=== PATIENT | female | born 1955 | race Caucasian/White ===

== ENCOUNTER 2020-01-16 18:45 | Observation (INO) | payer MEDICARE, OTHER, SELFPAY ==
--- NOTE | 2020-01-16 18:48 | ED_ITS ---
Entered by Sheri Rivera, acting as scribe for Karen Johnson HPI - General Adult General: Chief complaint: General Medical Stated complaint: possible stroke Thursday Time Seen by Provider: 01/16/20 18:52 History of Present Illness: HPI narrative: 64 yo female presents with possible stroke 3days ago. Patient states that she thought her blood sugar was low in the 80s but ate breakfast. She felt tired and then laid down. Upon awakening several hours later she had tremendous difficulty with speech. Her family reports that she had slurred speech. She is had difficulty with speech since that time. She states every day she is a little better but still ultimately has a hard time speaking. She denies any other complaints or concerns. MD complaint: possible stroke Onset (ago): day(s) (3) Associated symptoms: Deny chest pain, confusion, diaphoresis, dyspnea, headache(s), malaise, nausea, rash, palpitations, syncope or vomiting Review of Systems General: Reports: other (negative unless marked) Const: Denies: fever, chills, body aches, fatigue, malaise or diaphoresis Eyes: Denies: change in vision or blurry vision ENMT: Denies: throat pain, painful swallowing, hoarseness, ear pain, ear discharge, Change in hearing or nasal discharge Card: Denies: chest pain, palpitations, irregular heart rhythm, syncope, pre- syncope, shortness of breath on exertion or shortness of breath when lying down Resp: Denies: shortness of breath, productive cough, non-productive cough, wheezing, coughing up blood or chest congestion GI: Denies: abdominal pain, nausea, vomiting, vomiting blood, coffee grounds in vomit, diarrhea, constipation, cramping, blood in stool or black tarry stool : Denies: flank pain, painful urination, urinary frequency, urinary urgency, decreased urine ouput, urinary incontinence or blood in urine Musc: Denies: neck pain, back pain, extremity pain, extremity swelling, joint pain, joint swelling, joint warmth or joint stiffness Skin/Breast: Denies: rash, skin tenderness or yellow skin Neuro: Denies: headache, numbness in extremities, weakness in extremities, changes in sensation, lack of coordination, difficulty walking, dizziness, vertigo or confusion Endo: Denies: excessive thirst, tired all the time, cold intolerance, excessive sweating, flushing or hot flashes Alcon/Lymph: Denies: easy bruising, easy bleeding, petechiae or enlarged lymph nodes All/Imm: Denies: hives, throat swelling, tongue swelling, facial swelling or acute wheezing PFSH ED PFSH: Family History (Updated 01/16/20 @ 23:07 by Bell Chapman MD) Other Stroke Social History Smoking and tobacco status: never smoked Physical Exam Const: COMMON NORMALS: no apparent distress, oriented x3, no limitations, healthy appearing and well nourished EXAM LIMITATIONS: no altered mental status GENERAL APPEARANCE: cooperative, well kempt and well developed ORIENTATION/CONSCIOUSNESS: Yes awake HENMT: COMMON NORMALS: normocephalic, head/scalp atraumatic, hearing grossly normal bilaterally, external ears normal, EAC's normal, external nose normal and moist oral mucous membranes HEAD & SCALP: normal to inspection, normocephalic and atraumatic FACE & SINUS: normal facial exam and face symmetric NOSE: external nose normal and nares normal EXTERNAL EAR: Yes external ears normal EXTERNAL AUDITORY CANAL: EAC's normal MOUTH: oral and palatal mucosa normal and tongue normal Eye: COMMON NORMALS: PERRL, EOMs intact bilaterally, conjunctivae normal and no scleral icterus GENERAL EYE: normal appearance of both eyes and normal light reflex CONJUNCTIVA: Yes conjunctivae normal SCLERA: sclerae normal CORNEA: Yes corneas normal PUPIL: Yes PERRL DIRECT OPHTHALMOSCOPY: Yes normal light reflex Neck/C-Spine: COMMON NORMALS: full ROM, no lymphadenopathy, supple, no meningeal signs and no JVD GENERAL: Yes normal visual inspection and Yes trachea midline CERVICAL SPINE: Yes cervical ROM normal Chest: COMMONS NORMALS: inspection of chest normal and palpation of chest normal Resp: COMMON NORMALS: normal respiratory effort, no retractions, no use of accessory muscles and clear to auscultation bilaterally EFFORT & INSPECTION: Yes able to speak in complete sentences AUSCULTATION: clear to auscultation bilaterally Cardio: COMMON NORMALS: no JVD, regular rate, regular rhythm, S1 normal heart sound, S2 normal heart sound, no gallops, no clicks, no murmurs and no rub JUGULAR VENOUS DISTENTION: no JVD RATE: regular rate RHYTHM: regular rhythm HEART SOUNDS: S1 normal and S2 normal GI: COMMON NORMALS: soft to palpation, non-tender, no hepatosplenomegaly and no masses INSPECTION: Yes normal to inspection PALPATION: Yes soft and Yes no hepatosplenomegaly : COMMON NORMALS: Yes no CVA tenderness BLADDER/KIDNEY EXAM: Yes no CVA tenderness Back/Pelvis: COMMON NORMALS: no CVA tenderness, thoracic and lumbar spine normal to inspection, no thoracic nor lumbar tenderness and thoraco-lumbar ROM normal Extremity: COMMON NORMALS: normal to inspection, full ROM, normal capillary refill, no joint enlargement, no clubbing, cyanosis or edema and no calf tenderness Neuro: COMMON NORMALS: oriented x3, CN's II-XII intact bilaterally, moves all extremities, no focal motor deficits and no sensory deficits noted MENINGEAL SIGNS: Yes no meningeal signs Psych: COMMON NORMALS: mental status grossly normal, thought process normal, cooperative, affect normal, speech normal and activity/motor behavior normal APPEARANCE: Yes well kempt SPEECH: Yes normal speech THOUGHT PROCESS: normal thought process Skin: COMMON NORMALS: no rashes or lesions noted, skin turgor normal, no jaundice, no petechiae and no mottling GENERAL SKIN EXAM: no rashes or lesions noted and turgor normal Course Vital Signs: Vital signs: Vital Signs Temperature 98.2 F 01/16/20 23:20 Pulse Rate 92 01/16/20 23:50 Respiratory Rate 18 01/16/20 23:20 Blood Pressure 136/87 01/16/20 23:20 Pulse Oximetry 95 01/16/20 23:50 MDM - General Adult MDM Narrative: Medical decision making narrative: Thao is a very nice 64-year-old female who comes in with strokelike symptoms and a CT shows a stroke on her her left parietal lobe. She agrees to stay for further evaluation and risk stratification. The case was endorsed to Dr. Chapman and she is agreeable to admission. Lab Data: Attestation: I reviewed the patient's lab results. Labs: Lab Results 01/16/20 01/16/20 01/16/20 Range/Units 19:10 19:10 19:10 WBC 7.6 (4.0-10.0) 10^3/ uL RBC 4.05 L (4.1-5.3) 10^6/u L Hgb 11.9 (11.5-15.3) g/dL Hct 37.2 (37.0-47.0) % MCV 91.9 (81-99) fL MCH 29.4 (28.0-34.0) pg MCHC 32.0 (30.0-36.0) g/dL RDW 13.2 (12.1-15.1) % Plt Count 334 (130-400) 10^3/c mm MPV 9.6 (7.4-10.4) fL Neut % (Auto) 53.7 % Lymph % (Auto) 40.2 % [place] % (Auto) 5.7 % Eos % (Auto) 0.0 % Baso % (Auto) 0.1 % Neut # (Auto) 4.1 (1.8-7.7) 10^3/u L Lymph # (Auto) 3.1 (0.8-4.8) 10^3/u L [place] # (Auto) 0.4 (0.2-0.9) 10^3/u L Eos # (Auto) 0.0 (0.0-0.8) 10^3/u L Baso # (Auto) 0.0 (0.0-0.1) 10^3/u L Nucleated RBC % (a uto) 0 % Nucleated RBCs # 0.0 /100WBC PT 12.50 (10.5-13.3) SECO NDS INR 0.91 (0.8-1.2) APTT 23.0 L (23.9-36.7) SECO NDS Sodium 136 (136-145) mmol/L Potassium 3.8 (3.5-5.1) mmol/L Chloride 99 (98-107) mmol/L Carbon Dioxide 22 (22-29) mmol/L Anion Gap 18.8 (5-19) BUN 19 (8-23) mg/dL Creatinine 1.3 H (0.5-0.9) mg/dL GFR Calculation 41.1 L (90-130) mL/min Glucose 206 H (65-115) mg/dL Calcium 9.5 (8.5-10.5) mg/dL Magnesium (1.7-2.3) mg/dL Total Bilirubin 0.3 (0.15-1.2) mg/dL AST 34 H (0-32) U/L ALT 28 (0-33) U/L Alkaline Phosphata se 105 (35-105) IU/L Troponin T Baselin e (0-10) ng/mL Troponin T 120 Min [place] (0-10) ng/mL Delta Troponin T (0-10) ABS# Total Protein 7.7 (6.6-8.7) g/dL Albumin 4.2 (3.5-5.2) g/dL Globulin 3.5 (1.3-4.6) g/dL TSH (0.27-4.20) uIU/ mL 01/16/20 01/16/20 01/16/20 Range/Units 19:10 19:10 21:01 WBC (4.0-10.0) 10^3/ uL RBC (4.1-5.3) 10^6/u L Hgb (11.5-15.3) g/dL Hct (37.0-47.0) % MCV (81-99) fL MCH (28.0-34.0) pg MCHC (30.0-36.0) g/dL RDW (12.1-15.1) % Plt Count (130-400) 10^3/c mm MPV (7.4-10.4) fL Neut % (Auto) % Lymph % (Auto) % [place] % (Auto) % Eos % (Auto) % Baso % (Auto) % Neut # (Auto) (1.8-7.7) 10^3/u L Lymph # (Auto) (0.8-4.8) 10^3/u L [place] # (Auto) (0.2-0.9) 10^3/u L Eos # (Auto) (0.0-0.8) 10^3/u L Baso # (Auto) (0.0-0.1) 10^3/u L Nucleated RBC % (a uto) % Nucleated RBCs # /100WBC PT (10.5-13.3) SECO NDS INR (0.8-1.2) APTT (23.9-36.7) SECO NDS Sodium (136-145) mmol/L Potassium (3.5-5.1) mmol/L Chloride (98-107) mmol/L Carbon Dioxide (22-29) mmol/L Anion Gap (5-19) BUN (8-23) mg/dL Creatinine (0.5-0.9) mg/dL GFR Calculation (90-130) mL/min Glucose (65-115) mg/dL Calcium (8.5-10.5) mg/dL Magnesium 1.8 (1.7-2.3) mg/dL Total Bilirubin (0.15-1.2) mg/dL AST (0-32) U/L ALT (0-33) U/L Alkaline Phosphata se (35-105) IU/L Troponin T Baselin e 10 (0-10) ng/mL Troponin T 120 Min [place] 8.20 (0-10) ng/mL Delta Troponin T -1.80 L (0-10) ABS# Total Protein (6.6-8.7) g/dL Albumin (3.5-5.2) g/dL Globulin (1.3-4.6) g/dL TSH 1.60 (0.27-4.20) uIU/ mL EKG Data^: EKG 1: Attestation: I personally reviewed and interpreted this EKG as follows: EKG interpretation date: 01/16/20 EKG interpretation time: 19:21 Interpretation: Sinus tachycardia with a heart rate of 109, LVH, left axis johnny ation, nonspecific ST-T wave changes, normal intervals. Computer generated interpretation: Head CT 01/16/20 19:03 IMPRESSION: 1. Possible small subacute cortical infarct in the left parietal region, further evaluation with MRI is suggested 2. Mild sinus disease. Radiation Dose CTDIVOL = (mGy): DLP = 759.73 (mGy-cm) Discharge Plan Discharge Patient Disposition: Placed in Observation Admit Provider: Bell Chapman Clinical Impression: CVA (cerebral vascular accident) Qualifiers: CVA mechanism: unspecified Qualified Code(s): I63.9 - Cerebral infarction, unspecified Condition: Stable Referrals: Adriane Lazaro MD [Family Provider] - Discharge Date/Time: 01/16/20 22:51 Coding Level of Care Code ED Nurse Research for Chg Fwd Exam Comprehensive NIH stroke score NIHSS Level Of Consciousness - 1a: 0 Level Of Consciousness Questions - 1b: Both Correct Level Of Consciousness Commands - 1c: Both Correct Best Gaze - 2: Normal Visual Schaeffer - 3: No Visual Loss Facial Palsy - 4: Normal Motor Arm Right - 5: No Drift Motor Arm Left - 5: No Drift Motor Leg Right - 6: No Drift Motor Leg Left - 6: No Drift Limb Ataxia - 7: Absent Sensory - 8: Normal Best Language - 9: Mild/Moderate Aphasia Dysarthia - 10: Mild/Moderate Dysarthia Extinction And Inattention - 11: 0 Score Total Score: 2 The documentation recorded by the Miguel doe Kialy, accurately reflects the service I personally performed and the decisions made by Elizabeth fortune Eli N
[2020-01-16 18:51] VITALS: BP 152/91; PULSE 124; RESP 16; TEMP 36.6; BMI 26.6
--- NOTE | 2020-01-16 19:03 | ECG_ITS ---
Measurements Intervals [place] Rate: 109 P: 12 MA: 150 QRS: -13 QRSD: 79 T: 24 QT: 320 QTc: 432 SINUS TACHYCARDIA VOLTAGE CRITERIA FOR LVH POSSIBLE ANTERIOR MYOCARDIAL INFARCTION , PROBABLY OLD Compared to ECG 08/07/2017 09:45:12 Left ventricular hypertrophy now present Myocardial infarct finding now present T-wave abnormality no longer present Electronically Signed On 01-17-2020 17:08:44 [employer] by Sharon Peng M.D. [id number] f
--- NOTE | 2020-01-16 19:03 | CTR_ITS ---
PROCEDURE INFORMATION: Exam: CT Head Without Contrast Exam date and time: 01/16/2020 7:22 PM Age: 64 years old Clinical indication: Unspecified; Patient HX: C/O speech disturbance 01/14 improving; Additional info: Symptoms of acute stroke TECHNIQUE: Imaging protocol: Computed tomography of the head without contrast. Total DLP: 759.73 mGy-cm Radiation optimization: All CT scans at this facility use at least one of these dose optimization techniques: automated exposure control; mA and/or kV adjustment per patient size (includes targeted exams where dose is matched to clinical indication); or iterative reconstruction. COMPARISON: CT head wo con* [id number] 08/04/2017 10:18 AM FINDINGS: Brain: There is question of some small focal cortical hypodensity in the left parietal region such as on image number 28 which could represent small subacute cortical infarct. Further evaluation with MRI is suggested. There is no intracranial mass or hemorrhage. Midline shift: There is no shift of midline structures. Ventricles: Ventricles within normal limits of size. Bones/joints: Unremarkable. No acute fracture. Sinuses: There is some fluid in the right sphenoid sinus which may represent some mild sinus disease. Mastoid air cells: Visualized mastoid air cells are well aerated. Soft tissues: Unremarkable. CT/CT head wo con* [id number] IMPRESSION: 1. Possible small subacute cortical infarct in the left parietal region, further evaluation with MRI is suggested 2. Mild sinus disease. Radiation Dose CTDIVOL = (mGy): DLP = 759.73 (mGy-cm)
--- NOTE | 2020-01-16 19:17 | ED_ITS ---
Entered by Estefany Mills, acting as scribe for Karen Johnson HPI - General Adult General: Chief complaint: General Medical Stated complaint: possible stroke Thursday Time Seen by Provider: 01/16/20 18:52 [facility] ED PFSH: Social History Smoking and tobacco status: never smoked Course Vital Signs: Vital signs: Vital Signs Temperature 98 F 01/16/20 18:51 Pulse Rate 124 H 01/16/20 18:51 Respiratory Rate 16 01/16/20 18:51 Blood Pressure 152/91 01/16/20 18:51 Discharge Plan Discharge Condition: Stable Coding Level of Care Code ED Pelt Salter for Madi Amador
[2020-01-16 19:25] LABS: Basophils % 0.1 %; Hematocrit 37.2 % (37.0-47.0); Hemoglobin 11.9 g/dL (11.5-15.3); INR 0.91 (0.8-1.2); Lymphocytes # 3.1 10^3/uL (0.8-4.8); Lymphocytes % 40.2 %; Mean Corpuscular Hemoglobin 29.4 pg (28.0-34.0); Mean Corpuscular Volume 91.9 fL (81-99); Mean Platelet Volume 9.6 fL (7.4-10.4); Monocytes # 0.4 10^3/uL (0.2-0.9); Monocytes % 5.7 %; Neutrophils # 4.1 10^3/uL (1.8-7.7); Neutrophils % 53.7 %; Nucleated Red Blood Cells % 0 %; Platelet Count 334 10^3/cmm (130-400); Red Blood Count 4.05 10^6/uL (4.1-5.3); Red Cell Distribution Width 13.2 % (12.1-15.1); White Blood Count 7.6 10^3/uL (4.0-10.0)
[2020-01-16 19:32] LABS: Alanine Aminotransferase 28 U/L (0-33); Albumin Level 4.2 g/dL (3.5-5.2); Alkaline Phosphatase 105 IU/L (35-105); Anion Gap 18.8 (5-19); Aspartate Amino Transferase 34 U/L (0-32); Blood Urea Nitrogen 19 mg/dL (8-23); Calcium 9.5 mg/dL (8.5-10.5); Carbon Dioxide 22 mmol/L (22-29); Chloride 99 mmol/L (98-107); Globulin 3.5 g/dL (1.3-4.6); Glomerular Filtration Rate 41.1 mL/min (90-130); Glucose 206 mg/dL (65-115); Potassium 3.8 mmol/L (3.5-5.1); Sodium 136 mmol/L (136-145); Total Bilirubin 0.3 mg/dL (0.15-1.2); Total Protein 7.7 g/dL (6.6-8.7); Troponin(5th) Baseline 10 ng/mL (0-10)
[2020-01-16 19:54] LABS: Magnesium 1.8 mg/dL (1.7-2.3)
[2020-01-16 20:46] VITALS: BP 155/81; PULSE 84; RESP 16; TEMP 36.8; O2SAT 98
--- NOTE | 2020-01-16 21:04 | ECG_ITS ---
Measurements Intervals [place] Rate: 92 P: 8 AR: 156 QRS: -17 QRSD: 71 T: 20 QT: 346 QTc: 428 SINUS RHYTHM VOLTAGE CRITERIA FOR LVH [MEETS CRITERIA IN ONE OF: R(aVL), S(V1), R(V5), R(V5 (V5/V6)+S(V1)] NONSPECIFIC T-WAVE ABNORMALITY Compared to ECG 08/07/2017 09:45:12 Left ventricular hypertrophy now present Sinus tachycardia no longer present T-wave abnormality still present Electronically Signed On 01-17-2020 18:05:04 MEDIA PRODUCTION MANAGER by Sharon Peng M.D. [id number]
[2020-01-16 22:00] VITALS: BP 148/74; PULSE 84; RESP 16; TEMP 36.8; O2SAT 95
[2020-01-16] MEDS: sodium chloride 0.9% 500 ML 999 ML IV (22:47)
[2020-01-16] MEDS: aspirin 325 mg Tablet PO (22:47)
[2020-01-16 22:50] VITALS: BP 142/71; PULSE 74; RESP 16; TEMP 36.7; O2SAT 99
--- NOTE | 2020-01-16 22:56 | USCV_ITS ---
Thao Shepard Age: 64 Gender: F : 1955 Exam Date: 01/17/2020 07:14 Ordering Phys: Bell Chapman MD Technologist: Edda Ureña Exam Location: [facility] – [place] Indication: stroke BP: 130 / 85 HR: 81 Rhythm: Sinus Technical Quality: Good MEASUREMENTS (Male / Female) Normal Values 2D ECHO LV Diastolic Diameter PLAX 3.7 cm 4.2 - 5.9 / 3.9 - 5.3 cm LV Systolic Diameter PLAX 2.3 cm IVS Diastolic Thickness 1.5 cm 0.6 - 1.0 / 0.6 - 0.9 cm IVS Systolic Thickness 1.6 cm LVPW Diastolic Thickness 0.9 cm 0.6 - 1.0 / 0.6 - 0.9 cm LVPW Systolic Thickness 1.4 cm LVOT Diameter 2.0 cm LV Ejection Fraction 2D Teich 68.7 % LV Ejection Fraction MOD 2C 80.7 % LV Ejection Fraction 2C AL 83.3 % LA Diameter 3.1 cm LA Width 2.9 cm LA Height 4.7 cm RA Width 3.4 cm RA Height 3.6 cm M-MODE LV Diastolic Diameter MM 4.3 cm 4.2 - 5.9 / 3.9 - 5.3 cm LV Systolic Diameter MM 2.6 cm LV Ejection Fraction MM Teich 69.8 % IVS Diastolic Thickness MM 1.0 cm 0.6 - 1.0 / 0.6 - 0.9 cm IVS Systolic Thickness MM 1.1 cm LVPW Diastolic Thickness MM 0.8 cm 0.6 - 1.0 / 0.6 - 0.9 cm LVPW Systolic Thickness MM 1.4 cm Aortic Annulus Diameter 2.9 cm LA Ao Ratio MM 1.1 MV E Point Septal Separation 0.4 cm DOPPLER AV Peak Velocity 130.0 cm/s LVOT Peak Velocity 108.0 cm/s AV Area Cont Eq vti 3.0 cm squared AV Area Cont Eq pk 2.6 cm squared MV Peak Velocity 106.0 cm/s MV Area PHT 4.1 cm squared Mitral E to A Ratio 0.8 MV E' Velocity 9.0 cm/s Mitral E to MV E' Ratio 8.2 Mitral E to LV E' Lateral Ratio 7.1 Mitral E to LV E' Septal Ratio 9.7 TR Peak Velocity 267.0 cm/s TR Peak Gradient 28.5 mmHg Right Atrial Pressure 3.0 mmHg Pulmonary Artery Systolic Pressu 31.5 mmHg PV Peak Velocity 89.0 cm/s RV Acceleration Time 0.1 s FINDINGS Left Ventricle Normal left ventricular size, systolic function and wall thickness, with no regional wall motion abnormalities. Left ventricular ejection fraction is estimated at 65%. Normal diastolic function. Right Ventricle Normal right ventricular size and systolic function. Right ventricular systolic pressure 31.5 mmHg. Right Atrium Normal right atrial size. Right atrial pressure estimated at 3 mm Hg. Left Atrium Upper lipid of normal left atrial size. Mitral Valve Structurally normal mitral valve. No mitral valve stenosis. Trace mitral valve regurgitation. Aortic Valve Structurally normal trileaflet aortic valve. No aortic valve stenosis. Trace aortic valve regurgitation. Tricuspid Valve Structurally normal tricuspid valve. No tricuspid valve stenosis. Trace to mild tricuspid valve regurgitation. Pulmonic Valve Structurally normal pulmonic valve. No pulmonary valve stenosis. Mild pulmonary valve regurgitation. Pericardium No pericardial effusion. Aorta Normal size aortic root and proximal ascending aorta. CONCLUSIONS 1. Normal left ventricular size, systolic function and wall thickness, with no regional wall motion abnormalities. Left ventricular ejection fraction is estimated at 65%. Normal diastolic function. 2. Normal right ventricular size and systolic function. 3. Pulmonary artery pressure estimated at 32 mmHg. 4. Trace aortic valve regurgitation. 5. When compared to previous echocardiogram dated 08/05/2017, there may not have been any significant change. Sharon Peng MD (Electronically Signed) Final Date: 17 January 2020 16:54 S
--- NOTE | 2020-01-16 22:56 | USCV_ITS ---
Thao Shepard Age: 64 Gender: F : 1955 Exam Date: 01/17/2020 06:47 Ordering Phys: Bell Chapman MD Technologist: Edda Ureña [place] [facility] [place]: [place] Risk Factors: diabetes, hypertension Previous Vascular Surgery: none Right Brachial BP: / Left Brachial BP: / Right Left Velocity (cm/s) Spectral Plaque Velocity (cm/s) Spectral Plaque Syst/Diast Broadening Syst/Diast Broadening 75.00/ 22.10 Prox CCA 83.80 / 25.40 65.80/ 19.70 Mid CCA 40.40 / 14.80 71.35/ 20.50 Hetro Distal CCA 45.80 / 17.90 Hetro 62.80/ 19.80 Prox ICA 66.70 / 24.80 66.70/ 24.80 Mid ICA 88.00 / 41.00 71.80/ 28.20 Distal ICA 84.10 / 32.90 156.80 ECA 102.50 0.89 ICA/CCA 1.05 Antegrade Vertebral Antegrade 48.70/ 15.40 cm/s 41.90/ 20.50 cm/s Tri Subclavian Tri 121.3 130.1 0 0 FINDINGS Comparison: none available. No significant elevation of systolic or diastolic velocities. Waveforms are normal. Diffuse, mild bilateral scattered calcified plaque and intimal thickening throughout the common carotid arteries and extending through the bifurcation. CONCLUSIONS Bilateral ICA stenosis less than 50%. Mild atherosclerosis. Dr. Josy Harper DO (Electronically Signed) Final Date: 17 January 2020 10:32 S
--- NOTE | 2020-01-16 22:59 | P.HP_ITS ---
Providers/Chief Complaint Admitting Physician: Bell Chapman MD Chief Complaint: Storke work up History of Present Illness Thao Shepard is a 64 year old female with a past medical history of hypertension, diabetes mellitus with last A1c of 11 tested in November 2019, dyslipidemia poorly controlled in spite of atorvastatin 80 and ezetimibe who presents to the ER today after having new onset neurological symptoms 3 days ago. Per patient she was in her usual state of health until Thursday(today Thursday) morning when she started to develop some speech difficulty which she defines as word finding difficulty. Initially she attributed the symptoms to being relatively hypoglycemic with blood sugar in the 80s. She had breakfast and then went to sleep. By the time she woke up she noted that her symptoms had not improved. She was having a hard time finding words and could not put sentences together. 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 Her symptoms improved over the next day with her being able to recall words and put sentences together. Today she states that she is able to recall most words and put sentences together however her response time is a little bit delayed. She presents to the ER today because of ongoing symptoms not having subsided in the TIA timeframe. She denies any slurring of speech. Denies any facial asymmetry. Denies any weakness in arms or legs. Denies any choking or aspiration episodes. She is currently steady on her feet and ambulates without difficulty. Denies any dizziness, loss of consciousness or seizures. Denies any drug use. On presentation to the ER she underwent a CT of the head which shows a small subacute left parietal lobe infarct. Creatinine is 1.3 which is her baseline. Glucose random was 206. Liver function is within normal limits. Denies any past history of atrial fibrillation. Noted to have sinus tachycardia with heart rate 104 today. Denies any complaints of palpitations. Reports having had a type II VT during an episode of DKA back in 2017. She underwent a coronary angiogram however it was negative. She has not been on any antiplatelets previosuly. Review of Systems General: Reports: 10 or more systems reviewed and unremarkable except in HPI and below Const: Denies: fever, chills or body aches Eyes: Denies: change in vision, blurry vision or photophobia ENMT: Reports: hoarseness; Denies: throat pain, enlarged tonsils, painful swallowing or nasal congestion Card: Denies: chest pain, palpitations, irregular heart rhythm, edema, swelling of feet/ankles, lightheadedness, pre-syncope, shortness of breath on exertion or shortness of breath when lying down Resp: Denies: shortness of breath, productive cough, non-productive cough, wheezing, stridor, pain on inspiration, change in phlegm color, coughing up blood or chest congestion GI: Denies: abdominal pain, nausea, vomiting, vomiting blood, coffee grounds in vomit, difficulty swallowing, heartburn/indigestion, diarrhea, constipation, cramping, change in stool character, blood in stool or black tarry stool : Denies: flank pain, difficulty urinating, painful urination, urinary frequency, urinary urgency, urinary hesitancy or blood in urine Musc: Denies: neck pain, back pain, extremity pain, joint swelling, joint warmth or deformity Neuro: Denies: headache, numbness in extremities, weakness in extremities, changes in sensation, difficulty walking, frequent falls, dizziness, vertigo, behavioral changes, slurred speech or seizure-like activity Psych: Denies: anxiety, depression, suicidal ideation or homicidal ideation Endo: Denies: excessive urination, excessive thirst, tired all the time, cold intolerance or hot flashes Alcon/Lymph: Denies: easy bruising or easy bleeding Medications/Allergies Home Medications Medication Instructions Recorded Confirmed Last Taken Type Lantus Solostar U-100 Insulin 20 unit SUBCUT QPM 01/16/20 01/16/20 01/15/20 History Lantus Solostar U-100 Insulin 24 unit SUBCUT QAM 01/16/20 01/16/20 01/16/20 History Novolog Flexpen U-100 Insulin 0 unit SUBCUT BIDAC 01/16/20 01/16/20 01/16/20 History atorvastatin 80 mg PO DAILY 01/16/20 01/16/20 01/16/20 History ezetimibe 10 mg PO DAILY 01/16/20 01/16/20 01/16/20 History ezetimibe 10 mg PO DAILY 01/16/20 01/16/20 01/16/20 History hydrochlorothiazide 25 mg PO DAILY 02/01/16/20 01/16/20 History lisinopril 20 mg PO DAILY 01/16/20 01/16/20 Unknown History omeprazole 20 mg PO DAILY 01/16/20 01/16/20 01/16/20 History topiramate 50 mg PO DAILY 01/16/20 01/16/20 01/16/20 History venlafaxine 75 mg PO DAILY 01/16/20 01/16/20 01/16/20 History Allergies Allergy/AdvReac Type Severity Reaction Status Date / Time No Known Allergies Allergy Verified 01/16/20 21:57 PFSH Acute PFSH: Family History (Updated 01/16/20 @ 23:07 by Bell Chapman MD) Other Stroke Social History Smoking and tobacco status: never smoked Vitals/I&O/Wt Last Vital Signs Temp 98.1 F 01/16/20 22:50 Pulse 74 01/16/20 22:50 Resp 16 01/16/20 22:50 BP 142/71 01/16/20 22:50 Pulse Ox 99 01/16/20 22:50 Weight last 48 hrs Weight 72.575 kg Physical Exam Narrative: EXAM NARRATIVE: GEN: Awake, alert and oriented, no acute distress, forms sentences that make sense, though takes time to put it together CVS: S1S2 N RS: Clear to auscultation B/L Abd: Soft, nt/nd , bs+ AUTOMATIC THREAD WINDER: no focal neuro deficits Data : 01/17/20 05:10 01/17/20 05:10 A&P Assessment and plan (1) Aphasia complicating stroke: Status: Acute (2) Hyperlipidemia: Status: Acute Code(s): E78.5 - Hyperlipidemia, unspecified (3) Sinus tachycardia: Status: Acute Code(s): R00.0 - Tachycardia, unspecified (4) Diabetes: Status: Acute Code(s): E11.9 - Type 2 diabetes mellitus without complications (5) Hypertension: Status: Acute Code(s): I10 - Essential (primary) hypertension (6) CVA (cerebral vascular accident): Status: Acute Qualifiers: CVA mechanism: unspecified Qualified Code(s): I63.9 - Cerebral infarction, unspecified Code(s): I63.9 - Cerebral infarction, unspecified Additional A&P Information Admit to med/surg for observation. At this time the only manifestation of her CVA appears to be some degree of mild aphasia. This is currently improving. She is noted to have sinus tachycardia on telemetry. Will obtain 12-lead EKG. We will observe her overnight on telemetry to ensure there are no episodes of atrial fibrillation, in which case she will need additional treatment with anticoagulation. We will check echocardiogram and carotid duplex to rule out embolic CVA. Start aspirin 81 mg daily. Currently already on maximal dose of atorvastatin at 80 mg daily. Continue ezetimibe. Per patient her primary care doctor had plan to start her on an injectable antilipid emetic agent because of uncontrolled cholesterol. Check HbA1c and lipid panel in the morning. Continue home dose of Lantus 20 units twice daily and sliding scale insulin with meals. Continue lisinopril 20 mg daily. Speech therapy evaluation for aphasia. DVT prophylaxis Lovenox Full code Attestations Medical Necessity Statement*: anticipate < 2MN for stroke w/up Coding Level of Care Code Acute Husbandry Technician for Chg Fwd Diagnoses Aphasia complicating stroke Hyperlipidemia E78.5 Sinus tachycardia R00.0 Diabetes E11.9 Hypertension I10 CVA (cerebral vascular accident) I63.9 CVA mechanism: unspecified
[2020-01-16 23:20] VITALS: BP 136/87; PULSE 94; RESP 18; TEMP 36.8; O2SAT 95
[2020-01-16 23:50] VITALS: PULSE 92; O2SAT 95
[2020-01-17] VITALS (9 sets, daily range): BP systolic 102–148; BP diastolic 69–86; PULSE 88–92; RESP 16–20; TEMP 36.4–37; O2SAT 94–97
[2020-01-17] MEDS: enoxaparin 40 mg/0.4 mL Syringe SUBCUT (00:11)
[2020-01-17] MEDS: sodium chloride 0.9% 1,000 ML 100 ML IV ×2 (00:11→12:47)
[2020-01-17] MEDS: pneumococcal (23 valent) SDV 0.5 mL IM (00:14)
[2020-01-17] MEDS: insulin glargine 100 units/1 mL 20 UNIT SUBCUT ×2 (00:19→09:30)
[2020-01-17 00:22] LABS: Amphetamines Screen Urine Negative (Negative); Barbiturates Screen Urine Negative (Negative); Benzodiazepines Screen Urine Negative (Negative); Cocaine Screen Urine Negative (Negative); Opiate Screen Urine Negative (Negative); PCP Screen Urine Negative (Negative); THC Screen Urine Negative (Negative)
[2020-01-17 00:39] LABS: Add Urine Microscopic? YES; Bilirubin Urine Neg (NEGATIVE); Blood Urine Neg (Negative); Glucose Urine UA Norm (Normal); Ketones Urine Negative (Negative); Leukocyte Esterase Urine 2+ (Negative); Nitrate Urine Positive (Negative); Protein Urine Neg (Negative); Urine Appearance Cloudy (CLEAR); Urine Color Yellow (Yellow); Urobilinogen Urine Norm (Negative); pH Urine 6.5 (5-7)
[2020-01-17 00:40] LABS: Add Urine Culture? Yes; Bacteria Urine 4+; RBC Urine 0-4 /hpf (0-2); Squamous Epithelial Cell Urine 0-4 (0-5); WBC Urine >100 /hpf (0-5)
--- NOTE | 2020-01-17 01:04 | ECG_ITS ---
Measurements Intervals [place] Rate: 96 P: 49 IN: 156 QRS: 8 QRSD: 77 T: 48 QT: 360 QTc: 455 SINUS RHYTHM WITH OCCASIONAL VENTRICULAR PREMATURE COMPLEXES LOW QRS VOLTAGE IN PRECORDIAL LEADS [QRS DEFLECTION < 1.0 mV IN CHEST LEADS] POSSIBLE ANTERIOR MYOCARDIAL INFARCTION [30 ms Q WAVE IN V3/V4, OR R < 0.2 mV IN V4], PROBABLY OLD Compared to ECG 08/07/2017 09:45:12 Ventricular premature complex(es) now present Myocardial infarct finding now present Sinus tachycardia no longer present T-wave abnormality no longer present Electronically Signed On 01-17-2020 18:03:20 CLIENT TECHNICAL SUPPORT ASSOCIATE by Sharon Peng M.D. [email or web address]
[2020-01-17 01:19] LABS: Troponin 5 6HR 11.94 ng/mL (0-10); Troponin 5 6HR Delta 1.94 ng/L (0-12)
[2020-01-17 01:26] LABS: Glucose Point of Care 170 mg/dL (70-110)
[2020-01-17 05:35] LABS: Hematocrit 34.8 % (37.0-47.0); Hemoglobin 10.7 g/dL (11.5-15.3); Lymphocytes # 3.1 10^3/uL (0.8-4.8); Lymphocytes % 39.9 %; Mean Corpuscular HGB Conc 30.7 g/dL (30.0-36.0); Mean Corpuscular Hemoglobin 29.2 pg (28.0-34.0); Mean Corpuscular Volume 95.1 fL (81-99); Mean Platelet Volume 9.7 fL (7.4-10.4); Monocytes # 0.5 10^3/uL (0.2-0.9); Monocytes % 6.9 %; Neutrophils % 52.8 %; Nucleated Red Blood Cells % 0 %; Platelet Count 282 10^3/cmm (130-400); Red Blood Count 3.66 10^6/uL (4.1-5.3); Red Cell Distribution Width 13.2 % (12.1-15.1); White Blood Count 7.7 10^3/uL (4.0-10.0)
[2020-01-17 05:51] LABS: Estmated Average Glucose 255; Hemoglobin A1C 10.5 % (4.0-6.0)
[2020-01-17 06:03] LABS: Anion Gap 14.7 (5-19); Blood Urea Nitrogen 20 mg/dL (8-23); Calcium 8.8 mg/dL (8.5-10.5); Carbon Dioxide 22 mmol/L (22-29); Chloride 102 mmol/L (98-107); Chol HDL Ratio 3.82 mg/dL (0.0-4.40); Cholesterol 130 mg/dL (0-200); Glomerular Filtration Rate 49.8 mL/min (90-130); Glucose 172 mg/dL (65-115); HDL Cholesterol 34 mg/dL (60-100); LDL Cholesterol Calculated 68 mg/dL (50-129); Osmolality Calculated 281 mOsm/kg (285-295); Potassium 3.7 mmol/L (3.5-5.1); Sodium 135 mmol/L (136-145); Triglycerides 142 mg/dL (0-150)
[2020-01-17 06:28] LABS: Glucose Point of Care 146 mg/dL (70-110)
[2020-01-17] MEDS: lisinopril 20 mg Tablet PO (09:29)
[2020-01-17] MEDS: topiramate 25 mg Tablet 50 MG PO (09:29)
[2020-01-17] MEDS: aspirin 81 mg EC Tablet PO (09:29)
[2020-01-17] MEDS: hydroCHLOROthiazide 25 mg Tablet PO (09:29)
[2020-01-17] MEDS: atorvastatin 40 mg Tablet 80 MG PO (09:29)
[2020-01-17] MEDS: pantoprazole DR 40 mg Tablet PO (09:29)
[2020-01-17] MEDS: venlafaxine ER (24HR) 75 mg Capsule PO (09:29)
[2020-01-17] MEDS: ezetimibe 10 mg Tablet PO (09:29)
[2020-01-17 11:29] LABS: Glucose Point of Care 167 mg/dL (70-110)
--- NOTE | 2020-01-17 11:48 | P.PN_ITS ---
Subjective Subjective: Interval history: Chart reviewed, noted CT scan findings showing subacute left parietal lobe infarction. We will also order PT/OT/ST evaluations. Carotid ultrasound report noted. Hemodynamically stable. Declined MRI. Speech is improving, her primary deficit is word finding. Medications: Reviewed: Yes Medication Review Details: Current Medications Generic Name Dose Route Start Last Admin Trade Name Dcq PRN Reason Stop Dose Admin Aspirin 81 mg 01/17/20 09:00 01/17/20 09:29 Aspirin Ec PO 81 mg DAILY DUANE Administration Atorvastatin Calci um 80 mg 01/17/20 09:00 01/17/20 09:29 Lipitor PO 80 mg DAILY DUANE Administration Ezetimibe 10 mg 01/17/20 09:00 01/17/20 09:29 Zetia PO 10 mg DAILY DUANE Administration Enoxaparin Sodium 40 mg 01/16/20 23:00 01/17/20 00:11 Lovenox SUBCUT 40 mg Q24H DUANE Administration Hydrochlorothiazid e 25 mg 01/17/20 09:00 01/17/20 09:29 Hctz PO 25 mg DAILY DUANE Administration Sodium Chloride 1,000 mls @ 100 m ls/hr 01/16/20 22:59 01/17/20 09:58 Sodium Chloride 0.9% IV 100 mls/hr .Q10H DUANE Infusion Insulin Aspart 0 unit 01/17/20 08:00 01/17/20 07:34 Novolog SUBCUT 6 unit WM&BEDTIME DUANE Administration Protocol Insulin Glargine 20 unit 01/17/20 00:15 01/17/20 09:30 Lantus SUBCUT 20 unit BID DUANE Administration Lisinopril 20 mg 01/17/20 09:00 01/17/20 09:29 Prinivil PO 20 mg DAILY DUANE Administration Pantoprazole Sodiu m 40 mg 01/17/20 09:00 01/17/20 09:29 Protonix PO 40 mg DAILY DUANE Administration Topiramate 50 mg 01/17/20 09:00 01/17/20 09:29 Topamax PO 50 mg DAILY DUANE Administration Venlafaxine HCl 75 mg 01/17/20 09:00 01/17/20 09:29 Effexor Xr PO 75 mg DAILY DUANE Administration Vitals/I&O/Wt Last Vital Signs Temp 97.6 F 01/17/20 08:00 Pulse 91 01/17/20 08:00 Resp 20 H 01/17/20 08:00 BP 102/69 01/17/20 08:00 Pulse Ox 97 01/17/20 08:00 01/16/20 01/17/20 01/17/20 22:59 06:59 14:59 Intake Total 100 / 100 950 / 950 Output Total 150 / 150 Balance 100 / 100 800 / 800 Weight last 48 hrs Weight 72.575 kg Physical Exam Const: COMMON NORMALS: no apparent distress, oriented x3 and alert GENERAL APPEARANCE: cooperative and comfortable ORIENTATION/CONSCIOUSNESS: Yes awake HENMT: COMMON NORMALS: normocephalic, head/scalp atraumatic, hearing grossly normal bilaterally and moist oral mucous membranes HEAD & SCALP: no rmocephalic and atraumatic Eye: COMMON NORMALS: PERRL, EOMs intact bilaterally and conjunctivae normal CONJUNCTIVA: Yes conjunctivae normal PUPIL: Yes PERRL Neck/C-Spine: COMMON NORMALS: full ROM GENERAL: Yes normal visual inspection and Yes trachea midline Resp: COMMON NORMALS: normal respiratory effort, no retractions, no use of accessory muscles and clear to auscultation bilaterally EFFORT & INSPECTION: Yes able to speak in complete sentences, Yes symmetric chest movement and No tachypneic AUSCULTATION: clear to auscultation bilaterally Cardio: COMMON NORMALS: regular rate, regular rhythm, S1 normal heart sound, S2 normal heart sound and no murmurs RATE: regular rate RHYTHM: regular rhythm HEART SOUNDS: S1 normal and S2 normal GI: COMMON NORMALS: normal to inspection, nondistended, normoactive bowel sounds, soft to palpation and non-tender PALPATION: Yes soft Extremity: COMMON NORMALS: normal to inspection, full ROM and no clubbing, cyanosis or edema; negative for no pedal edema Neuro: COMMON NORMALS: oriented x3, moves all extremities, no focal motor deficits and no sensory deficits noted SENSORIUM/ORIENTATION: Yes alert SPEECH: speech normal OTHER: -difficulty with word finding and constructing longer sentences; speech overall is coherent and clear -no facial droop Psych: COMMON NORMALS: mental status grossly normal, thought process normal, cooperative, affect normal and speech normal SPEECH: Yes normal speech THOUGHT PROCESS: normal thought process Skin: COMMON NORMALS: no rashes or lesions noted, no jaundice, no petechiae and no mottling GENERAL SKIN EXAM: no rashes or lesions noted Data : 01/17/20 05:10 01/17/20 05:10 A&P Assessment and plan (1) CVA (cerebral vascular accident): -Patient presented with aphasia, primarily word finding difficulty, found to have a small subacute left parietal lobe infarct on CT scan of the head -MRI declined; will not shredding machine knife changer at this time but can be considered if symptoms worsen -Echo: EF=65%, no RWMA trace AR, trace MR, trace MS, trace to mild TR -Carotid ultrasound showing less than 50% bilateral ICA stenosis -ST/PT/OT evaluations appreciated; outpatient ST recommended -Hemodynamically stable, continue to monitor vital signs -Sinus tachycardia on EKG, heart rate controlled currently, telemetry monitoring -Neurochecks -Fall precautions -Due to timeline of presentation not considered appropriate candidate for TPA Status: Acute Qualifiers: CVA mechanism: unspecified Qualified Code(s): I63.9 - Cerebral infarction, unspecified Code(s): I63.9 - Cerebral infarction, unspecified (2) Hyperlipidemia: -Has known history of hyperlipidemia, poorly controlled even with maximum doses of atorvastatin and addition of ezetimibe; primary care provider working on injectable anti-lipidemic agent for better control -Lipid panel noted Status: Acute Qualifiers: Hyperlipidemia type: unspecified Qualified Code(s): E78.5 - Hyperlipidemia, unspecified Code(s): E78.5 - Hyperlipidemia, unspecified (3) Hypertension: -Has known history of essential hypertension, currently hemodynamically stable Status: Acute Qualifiers: Hypertension type: essential hypertension Qualified Code(s): I10 - Essential (primary) hypertension Code(s): I10 - Essential (primary) hypertension (4) Diabetes: -Has a history of insulin-dependent diabetes mellitus type 2, A1c is 10.5 -Continue Accu-Cheks, ISS, scheduled insulin -Hypoglycemia precautions -Diabetic diet as tolerated Status: Acute Qualifiers: Diabetes mellitus complication status: without complication Diabetes mellitus windows systems engineer insulin use: with windows systems engineer use Diabetes mellitus type: type 2 Qualified Code(s): E11.9 - Type 2 diabetes mellitus without complications; Z79.4 - city recorder (current) use of insulin Code(s): E11.9 - Type 2 diabetes mellitus without complications Additional A&P Information -DVT ppx with Lovenox -IVF hydration -GI ppx with PPI -Dispo: home -Code status: FULL code Attestations Medical Necessity Statement*: Discharge this afternoon Time Spent in Patient Care: Greater than 35 minutes (>than 50% of time spent in counselling and/or direct pt care on unit) . Coding Level of Care Code Acute Windshield Repair Technician for g Fwd Exam Comprehensive Diagnoses CVA (cerebral vascular accident) I63.9 CVA mechanism: unspecified Hyperlipidemia E78.5 Hyperlipidemia type: unspecified Hypertension I10 Hypertension type: essential hypertension Diabetes E11.9; Z79.4 Diabetes mellitus complication status: without complication Diabetes mellitus windows systems engineer insulin use: with windows systems engineer use Diabetes mellitus type: type 2
--- NOTE | 2020-01-17 13:00 | PC.NURSE ---
Pt wants to discuss the order with the physician for the MRI before consenting to the procedure. Messaged Dr. Osuna via [employer] with message.
--- NOTE | 2020-01-17 14:12 | PC.NURSE ---
Pt refused the MRI stating that she did not see the need to get the MRI due to the CT scan showing her stroke. Physician aware.
--- NOTE | 2020-01-17 14:25 | PC.OT ---
OT SCREEN COMPLETED DUE TO ORDERS RECEIVED. PATIENT DEMONSTRATED NO DEFICITS IN BALANCE, UE AROM OR MX STRENGTH. SHOWS NO INDICATION OF DEFICITS IN ADLS. SCREEN ONLY AT THIS TIME; NO FURTHER SKILLED OT REQUIRED AT THIS TIME. DISCHARGE OT ORDERS
--- NOTE | 2020-01-17 15:20 | PC.CHAP ---
Pastoral Care Encounter/Spiritual Assessment Type of Contact [] Declined radio electrician visit [] Patient/Family/Request visit [] Outpatient visit [] Follow-up visit [] Physician referral [] Code/Alert [x] Routine visit [] Staff referral [] Actively dying [] Patient sleeping [] Family support [] [] Out of room [] Palliative care [] [] Receiving care in room [] Pre-surgical visit [] Trauma [] Long length of stay [] ICU visit [] Other: Relational/Emotional Strength [] Patient feels connected with others/family/visitors/staff [] Distress [] Loneliness/isolation [] Abandonment Spirituality of Patient [x] Person of [place] [x] Attends Sikhism of their [place] [x] Believes in Prayer [x] Reads Bible or Baptist materials [] There are Spiritual issues to be addressed Film Color Tester Interventions [] Prayer [x] Active listening [x] Non-anxious presence [x] Spiritual/emotional support [] Crisis/trauma care [] Spiritual counseling [] Bereavement support [] Provided bereavement packet [] Provided Bible/devotional materials [] Provided toy/stuffed animal, coloring book to patient or family member [] Provided Communion [] Anointing/[place] [] Salvation [x] Completed spiritual assessment [] Other: Impact on Illness or Injury [] Angry [] Fearful [] Anxious [] Often cries [] Exhaustion [] Unable to work [] Unable to attend religion [] Unable to walk/stand [] Unable to read [] Unable to drive [] Unable to eat/drink [] Unable to sleep [] Unable to be with family [] Patient intubated [] Other: Summary no needs at time of visit. Time spent with patient
[2020-01-17 17:00] LABS: Glucose Point of Care 192 mg/dL (70-110)
--- NOTE | 2020-01-17 17:06 | P.DS_ITS ---
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 but can be considered if symptoms worsen -Echo: EF=65%, no RWMA trace AR, trace MR, trace MI, trace to mild TR -Carotid ultrasound showing less than 50% bilateral ICA stenosis -ST/PT/OT evaluations appreciated; outpatient ST recommended -Hemodynamically stable, continue to monitor vital signs -Sinus tachycardia on EKG, heart rate controlled currently, telemetry monitoring -Neurochecks -Fall precautions -Due to timeline of presentation not considered appropriate candidate for TPA Qualifiers: CVA mechanism: unspecified Qualified Code(s): I63.9 - Cerebral infarction, unspecified (2) Hyperlipidemia: Status: Acute Problem details: -Has known history of hyperlipidemia, poorly controlled even with maximum doses of atorvastatin and addition of ezetimibe; primary care provider working on injectable anti-lipidemic agent for better control -Lipid panel noted Qualifiers: Hyperlipidemia type: unspecified Qualified Code(s): E78.5 - Hyperlipidemia, unspecified (3) Hypertension: Status: Acute Problem details: -Has known history of essential hypertension, currently hemodynamically stable Qualifiers: Hypertension type: essential hypertension Qualified Code(s): I10 - Essential (primary) hypertension (4) Diabetes: Status: Acute Problem details: -Has a history of insulin-dependent diabetes mellitus type 2, A1c is 10.5 -Continue Accu-Cheks, ISS, scheduled insulin -Hypoglycemia precautions -Diabetic diet as tolerated Qualifiers: Diabetes mellitus type: type 2 Diabetes mellitus terminal press operator insulin use: with terminal press operator use Diabetes mellitus complication status: without complication Qualified Code(s): E11.9 - Type 2 diabetes mellitus without complications; Z79.4 - terminal press operator (current) use of insulin Reason for Visit Reason for Visit: Reason For Visit: [place] work up Hospital Course Hospital Course: Patient was admitted to the medical surgical floor and placed on telemetry monitoring. She was found to have presented outside the tPA window so was not a suitable candidate for this. Her primary deficit has been aphasia which is gradually improving, primarily difficulty with word finding and constructing longer sentences, overall speech is clear and coherent. She has been assessed by physical therapy, occupational therapy and speech therapy. Due to lack of physical deficits has been cleared by both PT and OT. Outpatient speech therapy has been recommended and requested. CT scan indicates subacute left parietal stroke infarct, MRI was offered but patient declined. It would not change overall management of the patient at this time but may be considered if patient symptoms worsen or persist. Echo was done as reported above with an ejection fraction of 55% with no noted regional wall motion abnormalities. Carotid ultrasound shows less than 50% bilateral ICA stenosis. EKGs show sinus tachycardia and she has been hemodynamically stable. On telemetry there has been no evidence of arrhythmia including A. fib. She has been referred to neurology for follow-up and is to follow-up with her primary care physician within 1 week. She is advised to seek medical attention immediately should any of her symptoms worsen. Discharge Summary: -Patient to follow-up with primary care physician within 1 week -Patient to start outpatient speech therapy as soon as can be arranged -Patient to follow-up with neurology Dr. Le as soon as next available appointment Physical Exam Const: COMMON NORMALS: no apparent distress, oriented x3 and alert GENERAL APPEARANCE: cooperative and comfortable ORIENTATION/CONSCIOUSNESS: Yes awake HENMT: COMMON NORMALS: normocephalic, head/scalp atraumatic, hearing grossly normal bilaterally and moist oral mucous membranes HEAD & SCALP: normocephalic and atraumatic Eye: COMMON NORMALS: PERRL, EOMs intact bilaterally and conjunctivae normal CONJUNCTIVA: Yes conjunctivae normal PUPIL: Yes PERRL Neck/C-Spine: COMMON NORMALS: full ROM GENERAL: Yes normal visual inspection and Yes trachea midline Resp: COMMON NORMALS: normal respiratory effort, no retractions, no use of accessory muscles and clear to auscultation bilaterally EFFORT & INSPECTION: Yes able to speak in complete sentences, Yes symmetric chest movement and No tachypneic AUSCULTATION: clear to auscultation bilaterally Cardio: COMMON NORMALS: regular rate, regular rhythm, S1 normal heart sound, S2 normal heart sound and no murmurs RATE: regular rate RHYTHM: regular rhythm HEART SOUNDS: S1 normal and S2 normal GI: COMMON NORMALS: normal to inspection, nondistended, normoactive bowel sounds, soft to palpation and non-tender PALPATION: Yes soft Extremity: COMMON NORMALS: normal to inspection, full ROM and no clubbing, cyanosis or edema; negative for no pedal edema Neuro: COMMON NORMALS: oriented x3, moves all extremities, no focal motor deficits and no sensory deficits noted SENSORIUM/ORIENTATION: Yes alert SPEECH: speech normal OTHER: -difficulty with word finding and constructing longer sentences; speech overall is coherent and clear -no facial droop Psych: COMMON NORMALS: mental status grossly normal, thought process normal, cooperative, affect normal and speech normal SPEECH: Yes normal speech THOUGHT PROCESS: normal thought process Skin: COMMON NORMALS: no rashes or lesions noted, no jaundice, no petechiae and no mottling GENERAL SKIN EXAM: no rashes or lesions noted Discharge Data Data Completed and Pending: Completed Studies During Hospitalization Category Date Time Status CT head wo con* [id number] Stat Cat Scan 01/16/20 19:03 Completed CV carotid duplex BI* [id number] Routine Ultrasound 01/16/20 22:56 Completed CV echo complete* [id number] Routine Ultrasound 01/16/20 22:56 Completed Pending at discharge Category Date Time Status Urine Culture Sta t Lab 01/16/20 22:20 Received Labs from last 24 hours 01/17/20 01/17/20 01/17/20 16:21 11:05 06:21 WBC RBC Hgb Hct MCV MCH MCHC RDW Plt Count MPV Neut % (Auto) Lymph % (Auto) [place] % (Auto) Eos % (Auto) Baso % (Auto) Neut # (Auto) Lymph # (Auto) [place] # (Auto) Eos # (Auto) Baso # (Auto) Nucleated RBC % (a uto) Nucleated RBCs # PT INR APTT Sodium Potassium Chloride Carbon Dioxide Anion Gap BUN Creatinine GFR Calculation Glucose POC Glucose 192 167 146 Estimat Average Gl ucose Hemoglobin A1c Calculated Osmolal ity Calcium Magnesium Total Bilirubin AST ALT Alkaline Phosphata se Troponin I 6 Hour Troponin I Hi Sens Del Troponin T Baselin e Troponin T 120 Min [place] Troponin T Total Protein Albumin Globulin Triglycerides Cholesterol LDL Cholesterol, C alc HDL Cholesterol LDL/HDL Ratio Cholesterol/HDL Ra bj TSH Urine Color Urine Appearance Urine pH Ur Specific Gravit y Urine Protein Urine Glucose (UA) Urine Ketones Urine Occult Blood Urine Nitrate Urine Bilirubin Urine Urobilinogen Ur Leukocyte Rebecca ase Urine RBC Urine WBC Ur Squamous Epith Cells Urine Bacteria Urine Opiates Scre en Ur Barbiturates Sc reen Ur Phencyclidine S crn Ur Amphetamines Sc reen U Benzodiazepines Scrn Urine Cocaine Scre en U Marijuana (THC) Screen 01/17/20 01/17/20 01/17/20 05:10 05:10 05:10 WBC RBC Hgb Hct MCV MCH MCHC RDW Plt Count MPV Neut % (Auto) Lymph % (Auto) [place] % (Auto) Eos % (Auto) Baso % (Auto) Neut # (Auto) Lymph # (Auto) [place] # (Auto) Eos # (Auto) Baso # (Auto) Nucleated RBC % (a uto) Nucleated RBCs # PT INR APTT Sodium 135 L Potassium 3.7 Chloride 102 Carbon Dioxide 22 Anion Gap 14.7 BUN 20 Creatinine 1.1 H GFR Calculation 49.8 L Glucose 172 H POC Glucose Estimat Average Gl ucose 255 Hemoglobin A1c 10.5 H Calculated Osmolal ity 281 L Calcium 8.8 Magnesium Total Bilirubin AST ALT Alkaline Phosphata se Troponin I 6 Hour Troponin I Hi Sens Del Troponin T Baselin e Troponin T 120 Min [place] Troponin T Total Protein Albumin Globulin Triglycerides 142 Cholesterol 130 LDL Cholesterol, C alc 68 HDL Cholesterol 34 L LDL/HDL Ratio 2.00 Cholesterol/HDL Ra bj 3.82 TSH Urine Color Urine Appearance Urine pH Ur Specific Gravit y Urine Protein Urine Glucose (UA) Urine Ketones Urine Occult Blood Urine Nitrate Urine Bilirubin Urine Urobilinogen Ur Leukocyte Rebecca ase Urine RBC Urine WBC Ur Squamous Epith Cells Urine Bacteria Urine Opiates Scre en Ur Barbiturates Sc reen Ur Phencyclidine S crn Ur Amphetamines Sc reen U Benzodiazepines Scrn Urine Cocaine Scre en U Marijuana (THC) Screen 01/17/20 01/17/20 01/16/20 05:10 00:55 23:26 WBC 7.7 RBC 3.66 L Hgb 10.7 L Hct 34.8 L MCV 95.1 MCH 29.2 MCHC 30.7 RDW 13.2 Plt Count 282 MPV 9.7 Neut % (Auto) 52.8 Lymph % (Auto) 39.9 [place] % (Auto) 6.9 Eos % (Auto) 0.0 Baso % (Auto) 0.0 Neut # (Auto) 4.0 Lymph # (Auto) 3.1 [place] # (Auto) 0.5 Eos # (Auto) 0.0 Baso # (Auto) 0.0 Nucleated RBC % (a uto) 0 Nucleated RBCs # 0.0 PT INR APTT Sodium Potassium Chloride Carbon Dioxide Anion Gap BUN Creatinine GFR Calculation Glucose POC Glucose 170 Estimat Average Gl ucose Hemoglobin A1c Calculated Osmolal ity Calcium Magnesium Total Bilirubin AST ALT Alkaline Phosphata se Troponin I 6 Hour 11.94 H Troponin I Hi Sens Del 1.94 Troponin T Baselin e Troponin T 120 Min [place] Troponin T Total Protein Albumin Globulin Triglycerides Cholesterol LDL Cholesterol, C alc HDL Cholesterol LDL/HDL Ratio Cholesterol/HDL Ra bj TSH Urine Color Urine Appearance Urine pH Ur Specific Gravit y Urine Protein Urine Glucose (UA) Urine Ketones Urine Occult Blood Urine Nitrate Urine Bilirubin Urine Urobilinogen Ur Leukocyte Rebecca ase Urine RBC Urine WBC Ur Squamous Epith Cells Urine Bacteria Urine Opiates Scre en Ur Barbiturates Sc reen Ur Phencyclidine S crn Ur Amphetamines Sc reen U Benzodiazepines Scrn Urine Cocaine Scre en U Marijuana (THC) Screen 01/16/20 01/16/20 01/16/20 22:20 22:20 21:01 WBC RBC Hgb Hct MCV MCH MCHC RDW Plt Count MPV Neut % (Auto) Lymph % (Auto) [place] % (Auto) Eos % (Auto) Baso % (Auto) Neut # (Auto) Lymph # (Auto) [place] # (Auto) Eos # (Auto) Baso # (Auto) Nucleated RBC % (a uto) Nucleated RBCs # PT INR APTT Sodium Potassium Chloride Carbon Dioxide Anion Gap BUN Creatinine GFR Calculation Glucose POC Glucose Estimat Average Gl ucose Hemoglobin A1c Calculated Osmolal ity Calcium Magnesium Total Bilirubin AST ALT Alkaline Phosphata se Troponin I 6 Hour Troponin I Hi Sens Del Troponin T Baselin e Troponin T 120 Min [place] 8.[place] Troponin T -1.80 L Total Protein Albumin Globulin Triglycerides Cholesterol LDL Cholesterol, C alc HDL Cholesterol LDL/HDL Ratio Cholesterol/HDL Ra bj TSH Urine Color Yellow Urine Appearance Cloudy Urine pH 6.5 Ur Specific Gravit y 1.010 Urine Protein Neg Urine Glucose (UA) Norm Urine Ketones Negative Urine Occult Blood Neg Urine Nitrate Positive H Urine Bilirubin Neg Urine Urobilinogen Norm Ur Leukocyte Rebecca ase 2+ H Urine RBC 0-4 H Urine WBC >100 H Ur Squamous Epith Cells 0-4 H Urine Bacteria 4+ H Urine Opiates Scre en Negative Ur Barbiturates Sc reen Negative Ur Phencyclidine S crn Negative Ur Amphetamines Sc reen Negative U Benzodiazepines Scrn Negative Urine Cocaine Scre en Negative U Marijuana (THC) Screen Negative 01/16/20 01/16/20 01/16/20 19:10 19:10 19:10 WBC RBC Hgb Hct MCV MCH MCHC RDW Plt Count MPV Neut % (Auto) Lymph % (Auto) [place] % (Auto) Eos % (Auto) Baso % (Auto) Neut # (Auto) Lymph # (Auto) [place] # (Auto) Eos # (Auto) Baso # (Auto) Nucleated RBC % (a uto) Nucleated RBCs # PT INR APTT Sodium 136 Potassium 3.8 Chloride 99 Carbon Dioxide 22 Anion Gap 18.8 BUN 19 Creatinine 1.3 H GFR Calculation 41.1 L Glucose 206 H POC Glucose Estimat Average Gl ucose Hemoglobin A1c Calculated Osmolal ity Calcium 9.5 Magnesium 1.8 Total Bilirubin 0.3 AST 34 H ALT 28 Alkaline Phosphata se 105 Troponin I 6 Hour Troponin I Hi Sens Del Troponin T Baselin e 10 Troponin T 120 Min [place] Troponin T Total Protein 7.7 Albumin 4.2 Globulin 3.5 Triglycerides Cholesterol LDL Cholesterol, C alc HDL Cholesterol LDL/HDL Ratio Cholesterol/HDL Ra bj TSH 1.60 Urine Color Urine Appearance Urine pH Ur Specific Gravit y Urine Protein Urine Glucose (UA) Urine Ketones Urine Occult Blood Urine Nitrate Urine Bilirubin Urine Urobilinogen Ur Leukocyte Rebecca ase Urine RBC Urine WBC Ur Squamous Epith Cells Urine Bacteria Urine Opiates Scre en Ur Barbiturates Sc reen Ur Phencyclidine S crn Ur Amphetamines Sc reen U Benzodiazepines Scrn Urine Cocaine Scre en U Marijuana (THC) Screen 01/16/20 01/16/20 19:10 19:10 WBC 7.6 RBC 4.05 L Hgb 11.9 Hct 37.2 MCV 91.9 MCH 29.4 MCHC 32.0 RDW 13.2 Plt Count 334 MPV 9.6 Neut % (Auto) 53.7 Lymph % (Auto) 40.2 [place] % (Auto) 5.7 Eos % (Auto) 0.0 Baso % (Auto) 0.1 Neut # (Auto) 4.1 Lymph # (Auto) 3.1 [place] # (Auto) 0.4 Eos # (Auto) 0.0 Baso # (Auto) 0.0 Nucleated RBC % (a uto) 0 Nucleated RBCs # 0.0 PT 12.50 INR 0.91 APTT 23.0 L Sodium Potassium Chloride Carbon Dioxide Anion Gap BUN Creatinine GFR Calculation Glucose POC Glucose Estimat Average Gl ucose Hemoglobin A1c Calculated Osmolal ity Calcium Magnesium Total Bilirubin AST ALT Alkaline Phosphata se Troponin I 6 Hour Troponin I Hi Sens Del Troponin T Baselin e Troponin T 120 Min [place] Troponin T Total Protein Albumin Globulin Triglycerides Cholesterol LDL Cholesterol, C alc HDL Cholesterol LDL/HDL Ratio Cholesterol/HDL Ra bj TSH Urine Color Urine Appearance Urine pH Ur Specific Gravit y Urine Protein Urine Glucose (UA) Urine Ketones Urine Occult Blood Urine Nitrate Urine Bilirubin Urine Urobilinogen Ur Leukocyte Rebecca ase Urine RBC Urine WBC Ur Squamous Epith Cells Urine Bacteria Urine Opiates Scre en Ur Barbiturates Sc reen Ur Phencyclidine S crn Ur Amphetamines Sc reen U Benzodiazepines Scrn Urine Cocaine Scre en U Marijuana (THC) Screen Vitals: Last Vital Signs Temp 98.6 F 01/17/20 16:00 Pulse 88 01/17/20 16:00 Resp 20 H 01/17/20 16:00 BP 148/83 01/17/20 16:00 Pulse Ox 96 01/17/20 16:00 Discharge Plan Discharge Patient Disposition: Home, Self-Care Condition: Stable Prescriptions: New aspirin 81 mg Tablet,Delayed Release (Dr/Ec) 81 mg PO DAILY 30 Days Qty: 30 RF: 0 Continued lisinopril 20 mg Tablet 20 mg PO DAILY RF: 0 venlafaxine 75 mg capsule,extended release 24hr 75 mg PO DAILY RF: 0 omeprazole 20 mg capsule,delayed release(DR/EC) 20 mg PO DAILY RF: 0 hydrochlorothiazide 25 mg tablet 25 mg PO DAILY RF: 0 ezetimibe 10 mg tablet 10 mg PO DAILY RF: 0 ezetimibe 10 mg tablet 10 mg PO DAILY RF: 0 topiramate 50 mg tablet 50 mg PO DAILY RF: 0 Lantus Solostar U-100 Insulin 100 unit/mL (3 mL) insulin pen 24 unit SUBCUT QAM RF: 0 atorvastatin 80 mg PO DAILY RF: 0 Lantus Solostar U-100 Insulin 100 unit/mL (3 mL) Insulin Pen 20 unit SUBCUT QPM RF: 0 Novolog Flexpen U-100 Insulin 100 unit/mL (3 mL) insulin pen 0 unit SUBCUT BIDAC RF: 0 Discharge Orders: Discharge Order (Routine); Ordered 01/17/20 Ordered By: Thao Nguyen Other Ambulatory Orders: Speech Language Pathology Eval and Treat Outpatient (Order) Timeframe: 1 Day Facility: [facility] - Location: [facility] [employer] Ordered By: Thao Nguyen Referrals: Zhane Le MD [Physician] - 1 month (post-stroke follow up; no tPA given, primary deficit is aphasia. ) Adriane Lazaro MD [Family Provider] - Discharge Diet: Cardiac and Diabetic Discharge Activity: Resume usual activity Patient Instructions: Ischemic Stroke (DC) Discharge Attestations Time Spent in Discharge Care*: greater than 30 min Specific Discharge Activities: Specific discharge activities: educating patient, educating and/or supporting family/caregiver, documenting/other paperwork and evaluating patient/reviewing data Status at Discharge: Cognitive status at discharge: cognitively intact , Behavioral status at discharge: cooperative , Functional status at discharge: independent ambulation Overall status at discharge: patient is back to baseline Quality Metrics Clinical Quality Measures During this hospital stay, did patient experience: Stroke Contraindication to Antithrombotic: Drug treatment not indicated Contraindication to Anticoagul ation: Overlap treatment not indicated Contraindication to Statin: Statin prescribed Contraindication to tPA: Did not meet criteria (presented outside tPA window) Reason stroke education not provided: Stroke education provided to patient Pt Provided Written Stroke Discharge Instructions: Patient given written information Rehab services assessed: Physical therapy, Occupational therapy and Speech therapy (outpatient ST requested) Coding Level of Care Code Acute [employer]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
== END 2020-01-17 17:58 | disposition home or self-care (01) ==
LOC: ER 20:22 → MEDSURG 21:56
PROVIDERS: Admitting Provider Student in an Organized Health Care Education/Training Program; Emergency Provider Emergency Medicine; Family Provider Family Medicine; Visit Provider Family Medicine
DX: I63.9 Cerebral infarction, unspecified (principal); I65.23 Occlusion and stenosis of bilateral carotid arteries; E78.5 Hyperlipidemia, unspecified; I10 Essential (primary) hypertension; E11.9 Type 2 diabetes mellitus without complications; Z79.4 Long term (current) use of insulin; R00.0 Tachycardia, unspecified; Z23 Encounter for immunization
CPT/HCPCS: 12345; 36415; 36416; 70450; 80048; 80053; 80061; 80307; 81001; 82962; 83036; 83735; 84443; 84484; 85025; 85610; 85730; 87077; 87086; 87186; 90471; 90732; 92523; 93005; 93306; 93880; 96360; 96361; 96372; 97161; 99283; 99285; G0378; J1650; J1815; J7030; J7040

== ENCOUNTER 2020-02-02 10:28 | Outpatient (RCR) | payer MEDICARE, OTHER, SELFPAY | END 2020-02-28 23:59 | disposition home or self-care (01) | LOC: SST 10:28 | PROVIDERS: Family Provider Family Medicine; PCP Family Medicine; Referring Provider Family Medicine; Visit Provider Family Medicine | DX: I63.9 Cerebral infarction, unspecified (principal); I69.320 Aphasia following cerebral infarction | CPT/HCPCS: 92507; 96105 ==

== ENCOUNTER → 2020-02-16 14:54 | Outpatient (BNVA) | payer MEDICARE, OTHER, SELFPAY | PROVIDERS: Family Provider Family Medicine; PCP Family Medicine; Referring Provider Family Medicine; Visit Provider Specialist | DX: Z86.73 Personal history of transient ischemic attack (TIA), and cerebral infarction without residual deficits (principal); R00.2 Palpitations; Z87.891 Personal history of nicotine dependence; I10 Essential (primary) hypertension; E11.9 Type 2 diabetes mellitus without complications | CPT/HCPCS: 99204 ==

== ENCOUNTER 2020-02-20 14:52 | Outpatient (CLI) | payer MEDICARE, OTHER, SELFPAY ==
--- NOTE | 2020-02-20 15:15 | MR_ITS ---
WS: [id number] MRI HEAD WITHOUT CONTRAST TECHNIQUE: Sagittal T1, T2 axial, T2 axial FLAIR, axial and coronal T1 images, axial susceptibility w eighted imaging, axial diffusion weighted images, and coronal T2 images were obtained. CLINICAL INFORMATION: CVA COMPARISON: None. FINDINGS: No evidence of restricted diffusion to suggest acute ischemia. Ventricular system and basal cisterns are patent. Mild small vessel changes. Moderate parenchymal volume loss. Small vessel changes in the eduardo. Normal vascular flow voids at the skull base. No extra-axial fluid collections. Paranasal sinus es and mastoid air cells well aerated. 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 No evidence of recent hemorrhage or surrounding edema. Normal optic chiasm and pituitary infundibulum. T emporal lobes and hippocampal formations are normal in appearance. MR/MR head wo con* [id number] IMPRESSION: 1. No evidence of restricted diffusion to suggest acute ischemia. 2. Mild small vessel changes moderate parenchymal volume loss. Small vessel ch anges in the eduardo. 3. Punctate focus of hemosiderin in the right cerebellum measuring 5 mm most c onsistent with cavernoma. No evidence of recent hemorrhage or surrounding edema . 4. Paranasal sinuses and mastoid air cells are well aerated.
--- NOTE | 2020-02-20 15:15 | MR_ITS ---
WS: [id number] MRA HEAD TECHNIQUE: Axial 3-D TOF images obtained with axial images and axial, sagittal, and coronal 2-D refor matted images. CLINICAL INFORMATION: CVA COMPARISON: CT January 16, 2020 FINDINGS: Distal vertebral artery is are patent. Basilar artery is patent. Normal vascularity to the RESEARCH TECHNOLOGIST territ ory bilaterally. Patent right posterior communicating artery. Normal vascularity to the RESEARCH TECHNOLOGIST territory bilaterally. Both ICAs are patent at the skull base. Tortuous cavernous carotid arteries. Normal vascularity to th e RADHA and MCA territories bilaterally. No evidence of high-grade proximal stenosis or aneurysm. MR/MR angio head wo con [id number] IMPRESSION: Normal intracranial MRA.
== END 2020-02-20 14:53 | disposition home or self-care (01) ==
LOC: RADSHAW 14:52
PROVIDERS: Family Provider Family Medicine; PCP Family Medicine; Visit Provider Specialist
DX: I63.9 Cerebral infarction, unspecified (principal)
CPT/HCPCS: 70544; 70551

== ENCOUNTER → 2020-05-07 12:28 | Outpatient (BNVA) | payer MEDICARE, OTHER, SELFPAY | PROVIDERS: Family Provider Family Medicine; PCP Family Medicine; Visit Provider Specialist | DX: G43.711 Chronic migraine without aura, intractable, with status migrainosus (principal); I10 Essential (primary) hypertension; E11.9 Type 2 diabetes mellitus without complications; Z87.891 Personal history of nicotine dependence; Z86.73 Personal history of transient ischemic attack (TIA), and cerebral infarction without residual deficits | CPT/HCPCS: 99214 ==

== ENCOUNTER 2020-06-08 14:09 | Outpatient (CLI) | payer MEDICARE, OTHER, SELFPAY ==
--- NOTE | 2020-06-08 14:14 | XR_ITS ---
WS: [id number] SCREENING DEXA SCAN I [facility] CLINICAL INFORMATION: POSTMENOPAUSAL ASYMPTOMATIC SCREENING COMPARISON: None. FINDINGS: The L1-L4 bone mineral density measures 1.147 g/cm2. This corresponds to a T score score of -0.3 and Z score of 0.5. Left femoral neck bone mineral density measures 0.835 g/cm2. This corresponds to a T score of -1.4 an d Z score of -0.7. Right femoral neck bone mineral density measures 0.903 g/cm2. This corresponds to a T score -0.8of an d Z score of -0.2. Mean femoral neck bone mineral density measures 0.869 g/cm2. This corresponds to a T score of -1.1 an d Z score of -0.4. XR/XR DEXA axial skeleton* [id number] IMPRESSION: Osteopenia Patient's FRAX calculated 10 year probability for major osteoporotic fracture i s 11.0 % and osteoporotic hip fracture is 1.8%.
--- NOTE | 2020-06-08 15:22 | MM_ITS ---
WS: [id number] BILATERAL SCREENING DIGITAL MAMMOGRAM WITH CAD HISTORY: SCREENING COMPARISON: 08/13/2018, 04/06/2014 and 02/11/2010 Bilateral CC and MLO views submitted. Computer aided detection analyzed. Breast composition: The breasts are heterogeneously dense, which may obscure small masses. No suspici ous masses, microcalcifications or architectural distortion. Numerous bilateral asymmetries are prese nt. These have been present since at least 2013. No distortion. MM/[id number] IMPRESSION: BI-RADS: 2-Benign FOLLOW UP: 1 Year Follow-up
== END 2020-06-08 14:10 | disposition home or self-care (01) ==
PROVIDERS: PCP Family Medicine; Visit Provider Family Medicine
DX: Z12.31 Encounter for screening mammogram for malignant neoplasm of breast (principal); Z78.0 Asymptomatic menopausal state; M85.89 Other specified disorders of bone density and structure, multiple sites
CPT/HCPCS: 77067; 77080

== ENCOUNTER 2021-08-01 14:11 | Outpatient (CLI) | payer MEDICARE, OTHER, SELFPAY ==
--- NOTE | 2021-08-01 14:22 | MM_ITS ---
WS: [id number] BILATERAL SCREENING DIGITAL MAMMOGRAM WITH CAD HISTORY: SCREENING COMPARISON: 06/08/2020 and 08/13/2018 Bilateral CC and MLO views submitted. Computer aided detection analyzed. Breast composition: The breasts are heterogeneously dense, which may obscure small masses. No suspici ous masses, microcalcifications or architectural distortion. Prominent asymmetries in each breast are stable. There are additional calcifications which are stable. MM/[id number] IMPRESSION: BI-RADS: 2-Benign FOLLOW UP: 1 Year Follow-up
== END 2021-08-01 14:12 | disposition home or self-care (01) ==
PROVIDERS: PCP Family Medicine; Visit Provider Family Medicine
DX: Z12.31 Encounter for screening mammogram for malignant neoplasm of breast (principal)
CPT/HCPCS: 77067

== ENCOUNTER 2023-01-07 10:30 | Outpatient (CLI) | payer OTHER, SELFPAY ==
--- NOTE | 2023-01-07 10:46 | MM_ITS ---
WS: [id number] BILATERAL SCREENING DIGITAL TOMOSYNTHESIS MAMMOGRAM WITH CAD HISTORY: Screening. COMPARISON: 08/01/2021, 06/08/2020 Bilateral CC and MLO views with tomosynthesis and synthetic mammography submitted. Computer aided det ection analyzed. Breast composition: The breasts are heterogeneously dense, which may obscure small masses. There is a n area of architectural distortion near the 12:00 axis of the LEFT breast at a posterior depth. The a dditional scattered asymmetries and calcifications are stable. MM/[place] [id number] IMPRESSION: BI-RADS: 0-Incomplete: Need additional imaging evaluation FOLLOW UP: Need Additional Imaging LEFT breast: Spot compression views (CC and MLO). True ML. Ultrasound to follow if abnormality persists.
== END 2023-01-07 10:31 | disposition home or self-care (01) ==
LOC: RAD 10:36
PROVIDERS: PCP Family Medicine; Visit Provider Family Medicine
DX: Z12.31 Encounter for screening mammogram for malignant neoplasm of breast (principal)
CPT/HCPCS: 77063; 77067

== ENCOUNTER 2023-02-02 09:00 | Outpatient (CLI) | payer MEDICARE, OTHER, SELFPAY ==
--- NOTE | 2023-02-02 09:13 | MM_ITS ---
WS: [id number] ADDITIONAL VIEWS LEFT MAMMOGRAM with tomosynthesis. LEFT BREAST ULTRASOUND HISTORY: ABNORMAL MAMMO COMPARISON: 01/07/2023, 08/01/2021 and 06/08/2020. LEFT MAMMOGRAM: Spot compression views and true ML with tomosynthesis and sympathetic mammography. Architectural distortion persists in the posterior LEFT breast towards the 11-12 o'clock axis. There is an adjacent soft tissue mass measuring 6 mm with a biopsy clip. The area of architectural distorti on is just anterior to this mass. LEFT BREAST ULTRASOUND 2-D and color Doppler imaging submitted. Ultrasound is directed to the posterior upper outer and inner quadrants of the LEFT breast. The previ ously biopsied mass is localized at 11:00, 5 cm from the nipple. Just anterior to this mass is a hypo echoic area with dense shadowing measuring 1.2 x 1.5 x 0.9 cm. This mass and shadowing also at 11:00, 5 cm from the nipple. No increased vascularity. This corresponds to the mammographic abnormality. MM/[id number] IMPRESSION: BI-RADS: 4-Suspicious Finding-Biopsy Should Be Considered FOLLOW UP: Biopsy Recommended Ultrasound-guided biopsy recommended LEFT breast mass at 11:00. Notified Adriane Lazaro MD at 02/02/2023 10:52 AM.
== END 2023-02-02 09:01 | disposition home or self-care (01) ==
PROVIDERS: PCP Family Medicine; Visit Provider Family Medicine
DX: R92.8 Other abnormal and inconclusive findings on diagnostic imaging of breast (principal)
CPT/HCPCS: 76642; 77061; G0279

== ENCOUNTER 2023-02-23 13:39 | Outpatient (CLI) | payer MEDICARE, OTHER, SELFPAY ==
--- NOTE | 2023-02-23 13:58 | XR_ITS ---
WS: [id number] SCREENING DEXA SCAN [employer] CLINICAL INFORMATION: ASYMTOMATIC MENOPAUSAL STATE COMPARISON: June 08, 2020 FINDINGS: The L1-L4 bone mineral density measures 1.109 g/cm2. This corresponds to a T score score of -0.6 and Z score of 0.1. Left femoral neck bone mineral density measures 0.821 g/cm2. This corresponds to a T score of -1.5 an d Z score of -0.8. Right femoral neck bone mineral density measures 0.850 g/cm2. This corresponds to a T score -1.2of an d Z score of -0.6. Mean femoral neck bone mineral density measures 0.836 g/cm2. This corresponds to a T score of -1.4 an d Z score of -0.7. XR/XR DEXA axial skeleton* [id number] IMPRESSION: Normal bone mineralization lumbar spine. Osteopenia femoral necks. Patient's FRAX calculated 10 year probability for major osteoporotic fracture i s 11.7 % and osteoporotic hip fracture is 2.3%. Bone mineralization lumbar spine has decreased -3.3% since 2019 Bone mineralization femoral necks decreased -3.8% since 2019
== END 2023-02-23 13:40 | disposition home or self-care (01) ==
PROVIDERS: PCP Family Medicine; Visit Provider Family Medicine
DX: Z78.0 Asymptomatic menopausal state (principal); M85.852 Other specified disorders of bone density and structure, left thigh; M85.851 Other specified disorders of bone density and structure, right thigh
CPT/HCPCS: 77080

== ENCOUNTER 2023-03-02 12:28 | Outpatient (CLI) | payer MEDICARE, OTHER, SELFPAY ==
--- NOTE | 2023-03-02 12:50 | US_ITS ---
WS: [id number] ULTRASOUND-GUIDED LEFT BREAST BIOPSY CLINICAL INFORMATION: ABNORMAL MAMMO/MASS COMPARISON: Ultrasound February 02, 2023 FINDINGS: The procedure including risks, benefits, and complications were discussed with the patient who agreed to proceed. Using sterile technique patient was prepped and draped in the usual sterile fashion. Aft er 1% lidocaine utilizing real-time ultrasound guidance 5 14-gauge cores were obtained of the LEFT br east lesion at the 11 o'clock position 5 cm from the nipple. Subsequently a titanium clip was placed in the biopsy cavity. No immediate complications. Pathology demonstrates A. Breast, left, 11 o'clock, 5 cm from nipple, ultrasound-guided biopsy: - Benign breast tissue with fibrocystic changes. - Small focus of adenosis with fat necrosis. - No malignancy identified. US/[place] [id number] IMPRESSION: 1. Uncomplicated ultrasound-guided LEFT breast biopsy. 2. The pathology demonstrates benign breast tissue with fibrocystic changes. A denosis with fat necrosis. No malignancy. 3. Recommend return to annual screening mammography. BI-RADS: 2-Benign FOLLOW UP: 1 Year Follow-up
== END 2023-03-02 12:29 | disposition home or self-care (01) ==
LOC: RAD 12:29
PROVIDERS: PCP Family Medicine; Visit Provider Family Medicine
DX: N63.22 Unspecified lump in the left breast, upper inner quadrant (principal)
CPT/HCPCS: 19083; 88305

== ENCOUNTER 2025-03-22 08:36 | Outpatient (CLI) | payer MEDICARE, OTHER, SELFPAY ==
--- NOTE | 2025-03-22 08:44 | MM_ITS ---
WS: [id number] BILATERAL SCREENING DIGITAL TOMOSYNTHESIS MAMMOGRAM WITH CAD HISTORY: SCREENING COMPARISON: 01/07/2023, 02/02/2023, 06/08/2020 and 08/01/2021 Bilateral CC and MLO views with tomosynthesis and synthetic mammography submitted. Computer aided detection analyzed. Breast composition: The breasts are heterogeneously dense, which may obscure small masses. No suspicious masses, microcalcifications or architectural distortion. Biopsy clip is noted in the medial LEFT breast. There is an area of architectural distortion in the superior medial LEFT breast which was also present in 2022 with no change. Mass with calcification also noted near 12:00. Scattered asymmetries do not appear significantly changed after reviewing multiple prior studies. MM/MM scr tomosynthesis [id number] IMPRESSION: BI-RADS: 2 - Benign FOLLOW UP: 1 Year Follow-up
== END 2025-03-22 08:37 | disposition home or self-care (01) ==
LOC: RAD 08:42
PROVIDERS: PCP Family Medicine; Visit Provider Family Medicine
DX: Z12.31 Encounter for screening mammogram for malignant neoplasm of breast (principal); R92.333 Mammographic heterogeneous density, bilateral breasts; N64.89 Other specified disorders of breast; N63.25 Unspecified lump in the left breast, overlapping quadrants; R92.1 Mammographic calcification found on diagnostic imaging of breast
CPT/HCPCS: 77063; 77067